=== PATIENT | female | born 1970 | race Caucasian/White ===

== ENCOUNTER 2021-11-13 16:12 | Emergency (ER) | payer OTHER ==
[2021-11-13 17:56] LABS: BILIRUBIN NEGATIVE (NEGATIVE); BLOOD NEGATIVE Ery/uL (NEGATIVE); CLARITY CLEAR (CLEAR); COLOR YELLOW (YELLOW); GLUCOSE (U) NORMAL (NORMAL); LEUKOCYTES NEGATIVE Leu/uL (NEGATIVE); NITRITE NEGATIVE (NEGATIVE); PROTEIN NEGATIVE (NEGATIVE); pH 6.5 (5.0-9.0)
[2021-11-13 18:47] LABS: BASOPHIL 0.7 % (0-2); EOSINOPHIL 0.2 % (0-5); HCT 39.5 % (37.0-47.0); LYMPHOCYTE 1.7 % (15-48); MCH 26.4 pg (25.0-31.0); MCHC 32.9 g/dL (32.0-36.0); MCV 80.3 fL (78.0-100.0); MONOCYTE 7.1 % (0-12); MPV 10.3 fL (6.0-9.5); NEUTROPHIL 89.9 % (41-80); NRBC 0; PLT 305 K/uL (150-400); RBC 4.92 M/uL (4.20-5.40); RDW 14.2 % (11.5-14.0); WBC 12.1 K/uL (4.0-10.5)
[2021-11-13 18:56] LABS: INR 1.17 (0.9-1.2); PROTHROMBIN TIME 14.6 SECONDS (11.9-13.9)
[2021-11-13 19:18] LABS: IRON % SATURATION 8.4 %SAT (20-50)
[2021-11-13 19:21] LABS: INFLUENZA A NAA NEGATIVE (NEGATIVE); LACTIC ACID 1.1 mmol/L (0.4-1.9)
[2021-11-13 19:23] LABS: CORONAVIRUS 2019 SARS-COV-2 POSITIVE (NEGATIVE)
[2021-11-13 19:57] LABS: ALBUMIN 3.7 g/dL (3.4-5.0); ALKALINE PHOSHATASE 66 U/L (46-116); ALT 40 U/L (14-59); AST 41 U/L (15-37); BILIRUBIN - TOTAL 0.7 mg/dL (0.2-1.0); BUN 12 mg/dL (7-18); BUN/CREAT RATIO (CALC) 15.4 RATIO; CHLORIDE 101 mmol/L (98-107); CO2 (BICARBONATE) 24 mmol/L (21-32); CPK 103 U/L (26-192); CREATININE 0.78 mg/dL (0.51-0.95); FT4 (FREE T4) < 0.20 ng/dL (0.76-1.46); GLOBULIN (CALCULATION) 3.5 g/dL; GLUCOSE 121 mg/dL (74-106); LIPASE 62 U/L (73-393); MAGNESIUM 1.4 mg/dL (1.8-2.4); POTASSIUM 4.7 mmol/L (3.5-5.1); TOTAL PROTEIN 7.2 g/dL (6.4-8.2)
== END 2021-11-14 00:28 | disposition other institution (70) ==
LOC: FER 16:12
PROVIDERS: Emergency Medicine
DX: U07.1 COVID-19 (principal); G40.909 Epilepsy, unspecified, not intractable, without status epilepticus
CPT/HCPCS: 36415; 70450; 71250; 80053; 81003; 82550; 83540; 83550; 83605; 83690; 83735; 84145; 84439; 84443; 84484; 85025; 85610; 86140; 87040; 87088; C9399; J0248; J1100; J1953; J2060; J7030; J7050; J7120; U0002